=== PATIENT | female | born 1990 | race Caucasian/White ===

== ENCOUNTER 2020-04-01 13:18 | Emergency (ER) | payer SELFPAY ==
--- NOTE | ~2020-04-01 | XR_ITS ---
EXAMINATION: XR chest 1V portable 04/01/2020 15:08 INDICATION: Shortness of breath, cough and congestion PROCEDURE: AP portable chest COMPARISON: 04/10/2015 FINDINGS: The lungs are clear. The cardiomediastinal silhouette is within normal limits. There are no pleural effusions. There is no pneumothorax suspected. IMPRESSION: 1: NO ACUTE CARDIOPULMONARY DISEASE. Reviewed, dictated and finalized at location B. [facility]
[2020-04-01 13:21] VITALS: BP 140/91; PULSE 79; RESP 18; TEMP 36.3; O2SAT 100
--- NOTE | 2020-04-01 14:24 | ED.GENADULT ---
HPI - General Adult General Chief complaint: Upper Respiratory Infection Stated complaint: Chest tightness, Covid exposure Time Seen by Provider: 04/01/20 13:40 Source: patient Mode of arrival: ambulatory Limitations: no limitations History of Present Illness HPI narrative: Patient is a 29-year-old female who presents with congestion rhinorrhea cough feeling like she cannot get a deep breath denies fever vomiting diarrhea patient notes that there have been roughly 13 people positive for Covid at her job patient denies any significant past medical history presents in no distress Related Data Allergies Allergy/AdvReac Type Severity Reaction Status Date / Time No Known Allergies Allergy Verified 04/01/20 13:39 Review of Systems Review of Systems: All systems reviewed & are unremarkable except as noted in HPI and below PMFSH Social History Social History (Updated 04/01/20 @ 14:26 by Rigo Arita PA-C) Smoking status: Never smoker Gender identity (if verbalized by the patient): Female Exam Narrative: Exam Narrative: GENERAL: Well-appearing, well-nourished, and in no acute distress. HEAD: Normocephalic, atraumatic. EYES: PERRLA and EOMI. ENT: Nares clear, no rhinorrhea or epistaxis. Mucous membranes moist. CHEST: Clear to auscultation. No respiratory distress. No wheezes rales or rhonchi HEART: Regular rate and rhythm. No murmur heard. EXTREMITIES: Normal range of motion. No edema. SKIN: Warm, dry, no rash. NEURO: No focal deficits. Alert and oriented x3. PSYCH: Normal mood and affect. Course Course Emergency Course: Patient in the room at this time no distress aware of case findings treatment plan diagnosis will follow with on-call primary care to get COVID-19 results is aware of needing to go through primary care to get this patient is afebrile nontoxic-appearing no hypoxemia no pneumonia Vital Signs Vital signs: Vital Signs Temperature 97.3 F L 04/01/20 13:21 Pulse Rate 79 04/01/20 13:21 Respiratory Rate 18 04/01/20 13:21 Blood Pressure 140/91 H 04/01/20 13:21 Pulse Oximetry 100 04/01/20 13:21 Temperature 97.3 F L 04/01/20 13:21 Pulse Rate 79 04/01/20 13:21 Respiratory Rate 18 12/04/20 13:21 Blood Pressure 140/91 H 04/01/20 13:21 Pulse Oximetry 100 04/01/20 13:21 Medical Decision Making MDM Narrative Medical decision making narrative: Patient with potential for COVID-19 will be discharged home for planned outpatient follow-up patient is afebrile nontoxic-appearing no distress felt appropriate for outpatient reevaluation given reasons to return Vital Signs Vital Signs: Vital Signs Temperature 97.3 F L 04/01/20 13:21 Pulse Rate 79 04/01/20 13:21 Respiratory Rate 18 04/01/20 13:21 Blood Pressure 140/91 H 04/01/20 13:21 Pulse Oximetry 100 04/01/20 13:21 Temperature 97.3 F L 04/01/20 13:21 Pulse Rate 79 04/01/20 13:21 Respiratory Rate 18 04/01/20 13:21 Blood Pressure 140/91 H 04/01/20 13:21 Pulse Oximetry 100 04/01/20 13:21 Lab Data Labs: Lab Results 04/01/20 Range/Units 14:28 SARS-CoV-2 RNA (RT-PCR) Pending Discharge Plan Discharge Clinical Impression: Upper respiratory infection Patient Disposition: Home, Self-Care Condition: Stable Instructions: Antibiotic Form, COVID-19 (Coronavirus Disease 2019) (ED) Additional Instructions: Follow up with your primary care provider within 1-2 days to set up for reevaluation and get your COVID-19 results. Go to ER for shortness of breath, difficulty breathing, chest pain, fever/chills, weakness, nauseau/vomitting, etc. or any other concerns. Self quarantine until you have received your COVID-19 results Take any prescribed medications as directed. Stay well-hydrated If you do not have a drug allergy to tylenol or motrin and can tolerate it then take tylenol or motrin as needed for discomfort/pain. Prescriptions: New fluticasone propionate [Flonase All
[2020-04-02 00:19] LABS: SARS-CoV-2 RNA PCR Negative
== END 2020-04-01 15:46 | disposition home or self-care (01) ==
PROVIDERS: Emergency Medicine Emergency Medical Services; Emergency Provider Emergency Medicine
DX: J06.9 Acute upper respiratory infection, unspecified (principal); Z20.828 Contact with and (suspected) exposure to other viral communicable diseases
CPT/HCPCS: 71045; 87635; 99283; C9803; U0003

== ENCOUNTER 2021-06-28 09:34 | Emergency (ER) | payer BC, SELFPAY ==
[2021-06-28 09:49] VITALS: BP 114/68; PULSE 80; RESP 18; TEMP 36.6; O2SAT 100
--- NOTE | 2021-06-28 09:58 | ED.URI ---
HPI - URI/Sore Throat General Chief Complaint: Upper Respiratory Infection Stated Complaint: uri Time Seen by Provider: 06/28/21 09:50 Source: patient Mode of arrival: ambulatory Limitations: no limitations History of Present Illness HPI Narrative: Angelica Laureano is 30 yo female with PCOS who comes to [facility] with complaints of sinus pressure ear pain and scratchy throat since Saturday. Denies fever Related Data Home Medications Medication Instructions Recorded Confirmed metformin 500 mg PO DAILY 06/28/21 06/28/21 Allergies Allergy/AdvReac Type Severity Reaction Status Date / Time No Known Allergies Allergy Verified 06/28/21 09:37 Review of Systems Review of Systems: CONSTITUTIONAL: Denies fever, chills, sweats. EYES: Denies visual changes, redness, discharge. ENT: Denies rhinorrhea, has congestion, sore throat, has bilateral otalgia. CARDIOVASCULAR: Denies chest pain, palpitations, edema. RESPIRATORY: Denies dyspnea, wheezing, cough GASTROINTESTINAL: Denies abdominal pain, nausea, vomiting, diarrhea. GENITOURINARY: Denies dysuria, hematuria, abnormal discharge SKIN: Denies rash or itching. NEUROLOGIC: Denies numbness, or focal weakness. PSYCHIATRIC: Denies anxiety or depression. [facility] Past Medical History Medical History 1 para 1 PCOS (polycystic ovarian syndrome) Social History Social History Smoking status: Never smoker Gender identity (if verbalized by the patient): Female Comments At time of signature, I agree with nursing past medical, surgical, social and family history. There is no relevant family history pertinent to the presenting complaint. Exam Narrative: GENERAL: This is a well-nourished, well-developed patient, in mild distress. HEAD: normocephalic, atraumatic. EYES: Sclera clear/white. Vision is grossly intact. EARS: External ears normal, auditory canals erythema and without drainage, fluid seen behind TMs . Hearing grossly intact. NOSE: External nose normal without nasal discharge, nares without redness, no rhinorrhea. THROAT: Mucous membranes moist, posterior pharynx mild erythema NECK: Neck supple, non-tender CARDIOVASCULAR: Regular rate and rhythm without murmurs, gallops, or rubs. RESPIRATORY: Clear to auscultation. Breath sounds equal bilaterally. No wheezes, rales, or rhonchi. GASTROINTESTINAL: Abdomen soft, n SKIN: warm, intact with no suspicious lesions or rash, good texture and turgor. NEURO: awake, alert, and oriented to person, place and time. There were no obvious focal neurologic abnormalities. Steady gait EXTREMITIES: Normal range of motion. BACK: Nontender without deformity Course Course Emergency Course: Patient complains of symptoms since Saturday of scratchy throat and sinus congestion Rapid COVID done- negative result Started on Mucinex, Flonase, Zyrtec Level of Care: Express Care Visit Vital Signs Vital signs: Vital Signs Temperature 97.9 F 06/28/21 09:49 Pulse Rate 80 06/28/21 09:49 Respiratory Rate 18 06/28/21 09:49 Blood Pressure 114/68 06/28/21 09:49 Pulse Oximetry 100 06/28/21 09:49 Temperature 97.9 F 06/28/21 09:49 Pulse Rate 80 06/28/21 09:49 Respiratory Rate 18 06/28/21 09:49 Blood Pressure 114/68 06/28/21 09:49 Pulse Oximetry 100 06/28/21 09:49 MDM - URI/Sore Throat Differential Diagnosis Differential diagnosis: Likely upper respiratory infection, sinusitis, bronchitis, influenza, pharyngitis and other Lab Data Labs: Lab Results 06/28/21 Range/Units 10:12 POC SARS CoV-2 Ag Negative (Negative) Critical Care Time Critical Care Time Critical Care Time: No Discharge Plan Discharge Clinical Impression: Sinusitis Qualifiers: Sinusitis location: frontal Chronicity: acute Recurrence: non-recurrent Qualified Code(s): J01.10 - Acute frontal sinusitis, unspecified
== END 2021-06-28 10:36 | disposition home or self-care (01) ==
PROVIDERS: Emergency Provider Nurse Practitioner
DX: J01.10 Acute frontal sinusitis, unspecified (principal); Z20.822 Contact with and (suspected) exposure to COVID-19; E28.2 Polycystic ovarian syndrome
CPT/HCPCS: 87426; 99213; C9803; G0463